=== PATIENT | male | born 1950 | race Caucasian/White ===

== ENCOUNTER 2018-08-05 08:30 | Outpatient (CLI) | payer MEDICARE, BC ==
[~2018-08-05 08:30] MED LIST: ACUVAIL 0.4 ML0.4 ML OP; ASPIRIN 81M81 MG/TA2 PO; BACTRIM DS 8001 TAB PO; BYSTOLIC10 MG PO; CEPHALEXIN500 M1 PO; CIALIS10 MG PO; CLEOCIN HCL300 MG PO; MULTIPLE VITAMI1 CAP PO; SLO-NIACIN500 MG PO
[2018-08-05 10:25] VITALS: BP 132/72; PULSE 50
--- NOTE | 2018-08-05 10:25 | NUR ---
PT IN ROOM 11 POST SYDNEE WITH BUBBLE STUDY. VSS AND AX0X3. PT VERBALIZES FEELING SLIGHTLY DIZZY AND TIRED. HOB LOWERED AND LIGHTS DIMMED WHICH PT STATES HE FELT BETTER. IV RUNNING AT 100ML/HR. PT NOW RESTING COMFORTABLY IN BED AND DENIES PAIN AT THIS TIME.
[2018-08-05 10:40] VITALS: BP 130/73; PULSE 54
[2018-08-05 10:55] VITALS: BP 134/70; PULSE 57
[2018-08-05 11:10] VITALS: BP 129/71; PULSE 47
--- NOTE | 2018-08-05 11:55 | NUR ---
PT VSS AND AX0X3 POST SYDNEE. VERBALIZES NO MORE DIZZINESS AFTER SITTING UP AND MOVING AROUND. TOLERATING FLUIDS PO. DISCHARGE INSTRUCTIONS REVIEWED AND SIGNED. PT ASSISTED OUT SAFELY WITH STAFF VIA WHEELCHAIR. PRESENT STRUCTURAL FITTER.
[2018-08-05 14:12] LABS: INR 1.2 (0.8-3.0); PROTHROMBIN TIME 13.2 SECONDS (9.7-12.8)
[2018-08-05 14:21] LABS: CALCIUM 9.1 mg/dL (8.4-10.2); CREATININE, serum 0.66 mg/dL (0.66-1.25); POTASSIUM 4.4 mmol/L (3.4-5.0)
[2018-08-05 14:46] LABS: HEMATOCRIT 41.3 % (42.0-52.0); HEMOGLOBIN 13.4 g/dl (13.5-18.0); MEAN CELL VOLUME 93 fl (80.0-100.0); MEAN CORPUSCULAR HEMOGLOBIN 30 pg (27.0-31.0); MEAN CORPUSCULAR HGB CONC 32 g/dl (33.0-37.0); MEAN PLATELET VOLUME 10.4 fl (7.4-10.4); PLATELET COUNT 286 K/mm3 (130-400); RED BLOOD COUNT 4.42 M/mm3 (4.20-5.60); REDCELL DISTRIBUTION WIDTH-CV 14.1 % (11.5-14.5)
== END 2018-08-05 11:55 | disposition home or self-care (01) ==
LOC: COL.RAD 08:30
PROVIDERS: Internal Medicine Interventional Cardiology
DX: I63.9 Cerebral infarction, unspecified (principal)
CPT/HCPCS: J2250; J3010

== ENCOUNTER → 2020-07-05 | Outpatient (REF) | payer MEDICARE, BC | LOC: ZCOL.LAB 18:45 | DX: L89.892 Pressure ulcer of other site, stage 2 (principal) ==

== ENCOUNTER → 2020-09-12 | Outpatient (CLI) | payer BC | LOC: EDSTATUS 11:03 → ZCOL.LAB 18:36 | DX: L97.909 Non-pressure chronic ulcer of unspecified part of unspecified lower leg with unspecified severity (principal) ==

== ENCOUNTER → 2020-12-16 | Outpatient (CLI) | payer BC | LOC: ZCOL.LAB 16:06 | DX: L97.909 Non-pressure chronic ulcer of unspecified part of unspecified lower leg with unspecified severity (principal) ==

== ENCOUNTER → 2023-12-08 | Outpatient (CLI) | payer BC ==
[~2023-12-08] MED LIST changes: +ALOE VERA CONCE1 CAP PO; +ASPI325T6 PO; +ASPIRIN 32325 MG/TAB PO; +ASPIRIN E.C. 8181 MG PO; +CIPRO 500MG TA500 MG PO; +CRESTOR5 MG PO; +CUBICIN 500MG500 MG IV; +ELIQUIS 5MG PO; +EMERGEN-C 1,01000 MG PO; +Iohexol 300 - 100 ML VIAL IV ONE; +LASIX 20MG TABL20 MG PO; +MAGNESIUM250 M1 PO; +MOBIC15 MG PO; +NATURE'S BLE1000 MCG PO; +NATURE'S BLEND100 M2 PO; +NEURONTIN100 MG/CAP PO; +NITRIC OXIDE PO; +NS 100 ML IV SCH; +OMEGA-31 SGL PO; +ORIGANUM OIL 1 M1 ML PO; +POMEGRANATE WIT1 CAP PO; +PRINIVIL40 MG PO; +PROBIOTIC-MAJOR PO; +THE MEDICINE S200 M2 PO; +TURMERIC500 MG PO; +VITAMIN D31000 I1 PO; +XARELTO20 MG PO; +[UNRECOGNIZED DRUG - OTHER] PO; +[UNRECOGNIZED DRUG - OTHER] PO
== END ==
LOC: COL.RAD 07:30
DX: I26.99 Other pulmonary embolism without acute cor pulmonale (principal)
CPT/HCPCS: Q9967

== ENCOUNTER 2023-12-15 08:00 | Outpatient (RCR) | payer BC ==
[2023-12-06 08:24] VITALS: BP 146/80; PULSE 55; TEMP 98.1
[2023-12-07 08:16] VITALS: BP 148/73; PULSE 62; TEMP 98.1
[2023-12-08 07:59] VITALS: BP 147/75; PULSE 57; TEMP 98.2
[2023-12-09 08:25] VITALS: BP 145/83; PULSE 55; TEMP 98.5
--- NOTE | 2023-12-09 08:30 | NUR ---
Pt tolerated abx without issue. He is assisted out to ED entrance by wheelchair.
[2023-12-10 08:17] VITALS: BP 135/74; PULSE 56; TEMP 97.4
[2023-12-13 08:11] VITALS: BP 138/77; PULSE 56; TEMP 98.1
--- NOTE | 2023-12-13 08:20 | NUR ---
Pt tolerated abx without issue. He has f/u appt with Dr Edmondson tomorrow, he will request PICC DC order, as he states office told him they would send that order last week. He is planning for last day of treatment 12/15/23, if course is not extended. He exits dept, free of complaints following abx dose.
[2023-12-14 08:10] VITALS: BP 126/73; PULSE 55; TEMP 97.5
[~2023-12-15] VITALS: Ht 185.4 cm; Wt 108.0 kg
[~2023-12-15 08:00] MED LIST changes: +DAPTOMYCIN IV SCH; -Iohexol 300 - 100 ML VIAL IV ONE; -NS 100 ML IV SCH; +NS Flush 10 ML SYRINGE (PICC Line - 10 mL Daily if not in use) ICA SCH; +NS Flush 10 ML SYRINGE (PICC Line - 10 mL PRN) ICA; +NS IV SCH
[2023-12-15 08:18] VITALS: BP 147/74; PULSE 58; TEMP 98.4
--- NOTE | 2023-12-15 09:04 | NUR ---
Pt ambulated with a cane to EU16 for thier last dose of ABX and PICC line removal. Meds and HX reviewed with the pt, no changes since last visit. Pt tolerated their ABX infusion well. Ysabel JORDAN in the room to remove the PICC line. PICC line removed, pt laid flat for 30 minutes. Discharge instructions were discussed with the pt. The pt did not have any questions. Pt exited the unit with a steady gait using a cane.
== END 2023-12-15 09:02 | disposition home or self-care (01) ==
LOC: EUO 08:00
DX: I87.032 Postthrombotic syndrome with ulcer and inflammation of left lower extremity (principal); L97.503 Non-pressure chronic ulcer of other part of unspecified foot with necrosis of muscle; L03.032 Cellulitis of left toe; L97.523 Non-pressure chronic ulcer of other part of left foot with necrosis of muscle
CPT/HCPCS: J0878